=== PATIENT | female | born 1930 | race Caucasian/White ===

== ENCOUNTER → 2016-11-01 | Outpatient (CLI) | payer MEDICARE, OTHER | LOC: WI 11:25 | PROVIDERS: ATTEND Internal Medicine | DX: Z12.31 Encounter for screening mammogram for malignant neoplasm of breast (principal) | CPT/HCPCS: 77067; G0202 ==

== ENCOUNTER → 2016-11-19 | Outpatient (CLI) | payer MEDICARE, OTHER ==
--- NOTE | 2016-11-19 17:31 | RADIOLOGY REPORT (SQ) ---
EXAM DESCRIPTION: VENOUS BILATERAL LOWER COMPLETED DATE/TIME: 11/19/2016 5:12 pm REASON FOR STUDY: BLE SWELLING Z12.31 ENCNTR SCREEN MAMMOGRAM FOR MALIGNANT NEOPLASM OF DAVID COMPARISON: None. TECHNIQUE: Dynamic and static russell scale and color images acquired of both lower extremity venous systems. Selected spectral images acquired with additional compression and augmentation maneuvers. Images stored on PACS. LIMITATIONS: None. FINDINGS: RIGHT LEG COMMON FEMORAL AND FEMORAL: Normal phasicity, compression and augmentation. No visualized echogenic material on russell scale. No defects on color images. POPLITEAL: Normal compression and augmentation. No visualized echogenic material on russell scale. No defects on color images. CALF VESSELS: Normal compression and augmentation. No visualized echogenic material on russell scale. No defects on color image. GSV AND SSV: Normal compression. No visualized echogenic material on russell scale. No defects on color images. ANY DEEP VENOUS INSUFFICIENCY: Not evaluated. ANY EVIDENCE OF POPLITEAL CYST: No. OTHER: No other significant finding. LEFT LEG COMMON FEMORAL AND FEMORAL: Normal phasicity, compression and augmentation. No visualized echogenic material on russell scale. No defects on color images. POPLITEAL: Normal compression and augmentation. No visualized echogenic material on russell scale. No defects on color images. CALF VESSELS: Normal compression and augmentation. No visualized echogenic material on russell scale. No defects on color images. GSV AND SSV: Normal compression. No visualized echogenic material on russell scale. No defects on color images. ANY DEEP VENOUS INSUFFICIENCY: Not evaluated. ANY EVIDENCE POPLITEAL CYST: No. OTHER: No other significant finding. IMPRESSION: NO EVIDENCE DVT OR SVT IN EITHER LEG. TECHNICAL DOCUMENTATION: JOB ID: [id number]- All Rights Reserved <Electronically signed by SANJEEV BAR MD in OV> 11/19/16 1730 [facility]
== END ==
LOC: SP 16:20
PROVIDERS: ATTEND Internal Medicine
DX: R22.43 Localized swelling, mass and lump, lower limb, bilateral (principal)
CPT/HCPCS: 93970

== ENCOUNTER → 2016-12-19 | Outpatient (CLI) | payer MEDICARE, OTHER ==
--- NOTE | 2016-12-19 15:01 | RADIOLOGY REPORT (SQ) ---
EXAM DESCRIPTION: HAND LEFT 3 VIEWS COMPLETED DATE/TIME: 12/19/2016 2:14 pm REASON FOR STUDY: PAIN IN LEFT HAND M79.642 PAIN IN LEFT HAND COMPARISON: None. EXAM PARAMETERS: NUMBER OF VIEWS: Three views. TECHNIQUE: AP, lateral and oblique radiographic images acquired of the left hand. LIMITATIONS: None. FINDINGS: MINERALIZATION: Normal. BONES: No acute fracture or dislocation. No worrisome bone lesions. No significant osteophytes. JOINTS: There are mild degenerative changes in the 1st carpal/metacarpal joint. There are degenerati ve changes in the distal interphalangeal joints. SOFT TISSUES: No swelling. No calcifications. OTHER: No other significant finding. IMPRESSION: Scattered osteoarthritic changes. No acute findings. TECHNICAL DOCUMENTATION: JOB ID: [id number] [employer]- All Rights Reserved
== END ==
LOC: OD 13:53
PROVIDERS: ATTEND Internal Medicine
DX: M79.642 Pain in left hand (principal)

== ENCOUNTER → 2017-05-31 | Outpatient (CLI) | payer MEDICARE, OTHER ==
--- NOTE | 2017-05-31 11:46 | RADIOLOGY REPORT (SQ) ---
EXAM DESCRIPTION: U/S ABDOMEN LIMITED W/O DOP COMPLETED DATE/TIME: 05/31/2017 11:06 am REASON FOR STUDY: EPIGASTRIC PAIN (R10.13) R10.13 EPIGASTRIC PAIN COMPARISON: None. TECHNIQUE: Dynamic and static grayscale images acquired of the right upper quadrant and recorded on PACS. Additional selected color Doppler and spectral images recorded. LIMITATIONS: Study limited due to acoustical interference from fat or from air in the bowel. FINDINGS: PANCREAS: Visualized pancreas and duct normal. Parts of pancreas poorly seen secondary to acoustical interference from fat or from air in the bowel. LIVER: 1.7 cm cyst in the left lobe. No solid masses. Echotexture normal. LIVER VASCULATURE: Normal directional flow of the main portal vein and hepatic veins. GALLBLADDER: Small stones and sludge. Normal wall thickness. No pericholecystic fluid. ULTRASOUND-DETECTED OREILLY'S SIGN: Negative. INTRAHEPATIC DUCTS AND COMMON DUCT: CBD and intrahepatic ducts normal caliber. No filling defects. INFERIOR VENA CAVA: Normal flow. AORTA: No aneurysm. RIGHT KIDNEY: Normal size. Normal echogenicity. No solid or suspicious masses. No hydronephrosis. No calcifications. PERITONEAL CAVITY AND RIGHT PLEURAL SPACE: No ascites or effusions. OTHER: No other significant finding. IMPRESSION: 1. SMALL STONES AND SLUDGE IN THE GALLBLADDER. NO BILIARY DILATION OR ACUTE FINDINGS. 2. 1.7 CM CYST IN THE LEFT LOBE OF THE LIVER. TECHNICAL DOCUMENTATION: JOB ID: [id number] [employer]- All Rights Reserved
== END ==
LOC: RAD 09:58
PROVIDERS: ATTEND Internal Medicine
DX: R10.13 Epigastric pain (principal)
CPT/HCPCS: 76705

== ENCOUNTER 2017-11-01 09:29 | Emergency (ER) | payer MEDICARE, OTHER ==
[2017-11-01] MEDS ORDERED: ASPIRIN 81 MG TABLET, CHEWABLE PO ONE (10:09)
[2017-11-01] MEDS ORDERED: ONDANSETRON HCL INJ/PF 4 MG/2 ML SDV IV ONE (10:19)
[2017-11-01 10:43] LABS: ABSOLUTE EOSINOPHILS # (AUTO) 0.1 10^3/uL (0.0-0.6); ABSOLUTE LYMPHOCYTES (AUTO) 1.3 10^3/uL (0.5-4.7); ABSOLUTE MONOCYTES (AUTO) 1.2 10^3/uL (0.1-1.4); ABSOLUTE NEUT (AUTO) 3.8 10^3/uL (1.7-8.2); BASOPHILS % (AUTO) 0.6 % (0-2); EOSINOPHILS % (AUTO) 1.6 % (0-6); HEMATOCRIT 38.4 % (36.0-47.0); LYMPHOCYTES % (AUTO) 19.9 % (13-45); MEAN CORPUSCULAR HEMOGLOBIN 34.1 pg (27.0-33.4); MEAN CORPUSCULAR VOLUME 101 fl (80-97); MONOCYTES % (AUTO) 18.2 % (3-13); PLATELET COUNT 252 10^3/uL (150-450); RED BLOOD COUNT 3.82 10^6/uL (3.72-5.28); RED CELL DISTRIBUTION WIDTH 12.8 % (11.5-14.0); SEGMENTED NEUTROPHILS % (AUTO) 59.7 % (42-78); TOTAL CELLS COUNTED % (AUTO) 100 %; WHITE BLOOD COUNT 6.3 10^3/uL (4.0-10.5)
--- NOTE | 2017-11-01 10:46 | RADIOLOGY REPORT (SQ) ---
EXAM DESCRIPTION: CHEST SINGLE VIEW COMPLETED DATE/TIME: 11/01/2017 10:33 am REASON FOR STUDY: cp COMPARISON: Chest films 06/21/2015, 04/25/2015, 09/02/2012 EXAM PARAMETERS: NUMBER OF VIEWS: One view. TECHNIQUE: Single frontal radiographic view of the chest acquired. RADIATION DOSE: NA LIMITATIONS: None. FINDINGS: LUNGS AND PLEURA: No opacities, masses or pneumothorax. No pleural effusion. MEDIASTINUM AND HILAR STRUCTURES: No masses. Contour normal. HEART AND VASCULAR STRUCTURES: Heart normal in size. Normal vasculature. Calcified mitral annulus BONES: No acute findings. HARDWARE: Left-sided dual lead pacemaker unchanged. OTHER: No other significant finding. IMPRESSION: No acute findings TECHNICAL DOCUMENTATION: JOB ID: [id number] [employer]- All Rights Reserved Reading location - IP/workstation name: [email or web address]
--- NOTE | 2017-11-01 11:05 | EKG REPORT ---
SEVERITY:- OTHERWISE NORMAL ECG - SINUS RHYTHM BORDERLINE LEFT AXIS DEVIATION : Confirmed by: Kiera Luis 01-Nov-2017 11:04:55
[2017-11-01 11:10] LABS: ALANINE AMINOTRANSFERASE 31 U/L (9-52); ALBUMIN 3.6 g/dL (3.5-5.0); ALKALINE PHOSPHATASE 73 U/L (38-126); ANION GAP 9 (5-19); ASPARTATE AMINO TRANSFERASE 23 U/L (14-36); BILIRUBIN,DIRECT 0.3 mg/dL (0.0-0.4); BILIRUBIN,TOTAL 0.4 mg/dL (0.2-1.3); BLOOD UREA NITROGEN 13 mg/dL (7-20); CALCIUM 8.8 mg/dL (8.4-10.2); CARBON DIOXIDE 28 mmol/L (22-30); CHLORIDE 103 mmol/L (98-107); CREATINE KINASE 53 U/L (30-135); GLUCOSE 94 mg/dL (75-110); LIPASE 48.9 U/L (23-300); POTASSIUM 4.5 mmol/L (3.6-5.0); SODIUM 140.2 mmol/L (137-145); TOTAL PROTEIN 5.8 g/dL (6.3-8.2)
[2017-11-01 11:20] LABS: CREATINE KINASE MB 1.41 ng/mL (<4.55)
[2017-11-01 11:22] LABS: TROPONIN I < 0.012 ng/mL
[2017-11-01 12:15] LABS: APPEARANCE,URINE CLEAR; BILIRUBIN,URINE NEGATIVE (NEGATIVE); COLOR,URINE STRAW; GLUCOSE, URINE NEGATIVE (NEGATIVE); KETONES,URINE NEGATIVE (NEGATIVE); LEUKOCYTE ESTERASE,URINE NEGATIVE (NEGATIVE); NITRITE,URINE NEGATIVE (NEGATIVE); PROTEIN,URINE NEGATIVE (NEGATIVE); URINE SPECIFIC GRAVITY 1.003; UROBILINOGEN,URINE NEGATIVE mg/dL (<2.0)
--- NOTE | 2017-11-01 13:47 | RADIOLOGY REPORT (SQ) ---
EXAM DESCRIPTION: CT ABD/PELVIS WITH IV ORAL COMPLETED DATE/TIME: 11/01/2017 1:28 pm REASON FOR STUDY: llq pain, diarrhea, hx diverticulitis COMPARISON: Abdominal ultrasound 05/31/2017 CT abdomen pelvis 06/07/2012 TECHNIQUE: CT scan of the abdomen and pelvis performed using helical scanning technique with dynamic intravenous contrast injection. The patient drank oral contrast. Images reviewed with lung, soft tissue, and bone windows. Reconstruc aakash coronal and sagittal MPR images reviewed. Delayed images for evaluation of the urinary system als o acquired. All images stored on PACS. All CT scanners at this facility use dose modulation, iterative reconstruction, and/or weight based d osing when appropriate to reduce radiation dose to as low as reasonably achievable (ALARA). [facility]: Dose Right [facility]: CareDose [facility]: Dose Right [facility]: Teradose 4D [facility]: PayPerks CONTRAST TYPE AND DOSE: contrast/concentration: Isovue 370.00 mg/ml; Total Contrast Delivered: 75.0 ml; Total Saline Delivered: 60.0 ml RENAL FUNCTION: Creatinine 0.6 RADIATION DOSE: CT Rad equipment meets quality standard of care and radiation dose reduction techniq ues were employed. CTDIvol: 6.3 - 8.7 mGy. DLP: 771 mGy-cm.. LIMITATIONS: None. FINDINGS: Patient drank oral contrast. No CT evidence of bowel obstruction. No free intraperitonea l air or fluid. There are descending colon and sigmoid colon diverticuli without CT signs of acute diverticulitis. N o pericolic fat inflammatory change or abscess. In the left pelvis along the left ovary, an 8.5 x 6.5 cm cyst is present, best shown on coronal image 31. This is larger than in 2012, where it measured 3 x 3 cm in size. Cystic ovarian neoplasm could not be excluded. LOWER CHEST: Lung bases are clear. Small hiatal hernia. Mild cardiomegaly with pacemaker and calcif ied mitral annulus LIVER: Normal size. No masses. Multiple benign less than 2 cm hepatic cysts in the left lobe liver. No dilated ducts. SPLEEN: Normal size. No focal lesions. PANCREAS: No masses. No significant calcifications. No adjacent inflammation or peripancreatic fluid collections. Pancreatic duct not dilated. GALLBLADDER: Tiny stones layer dependently in the gallbladder. ADRENAL GLANDS: No significant masses or asymmetry. RIGHT KIDNEY AND URETER: No solid masses. No significant calcifications. No hydronephrosis or hyd roureter. LEFT KIDNEY AND URETER: No solid masses. No significant calcifications. No hydronephrosis or hydr oureter. AORTA AND VESSELS: No abdominal aortic aneurysm. Calcified visceral artery origins with about 50% pr oximal SMA stenosis. Celiac artery, bilateral renal artery is grossly patent. RETROPERITONEUM: No retroperitoneal adenopathy, hemorrhage or masses. BOWEL AND PERITONEAL CAVITY: Oral contrast throughout the gastrointestinal tract without evidence of obstruction. No free intraperitoneal air or fluid. Descending and sigmoid colon diverticuli without CT signs of diverticulitis APPENDIX: Normal. PELVIS: No free fluid. No pelvic adenopathy. Normal size uterus with small postmenopausal right ova ry. On the left side, an 8.5 x 6.5 cm cyst is present. Cystic ovarian neoplasm could not be exclude d ABDOMINAL WALL: No masses. No hernias. BONES: Grade 1 anterolisthesis of L4 over L5 with mild central canal stenosis OTHER: No other significant finding. IMPRESSION: No CT evidence of acute diverticulitis 8.5 x 6.5 cm water density cyst along the left ovary. Cystic ovarian neoplasm could not entirely be excluded TECHNICAL DOCUMENTATION: JOB ID: [id number] Quality ID # [id number]: Final reports with documentation of one or more dose reduction techniques (e.g., Au tomated exposure control, adjustment of the mA and/or kV according to patient size, use of iterative reconstruction technique) 2010 [employer]- All Rights Reserved Reading location - IP/workstation name: [email or web address]
--- NOTE | 2017-11-01 15:32 | RADIOLOGY REPORT (SQ) ---
EXAM DESCRIPTION: U/S NON OB PEL LTD W/DOPPLER COMPLETED DATE/TIME: 11/01/2017 3:13 pm REASON FOR STUDY: left ovarian cyst, large, pain, n/v/d COMPARISON: CT abdomen pelvis 11/01/2017, 06/07/2012 TECHNIQUE: Dynamic and static grayscale images acquired of the pelvis via transabdominal approach an d recorded on PACS. Additional selected color Doppler and spectral images recorded. LIMITATIONS: None. FINDINGS: UTERUS: Contour normal. No mass. Uterus is 6 x 3 x 2 cm in size ENDOMETRIAL STRIPE: Not visualized. CERVIX: Closed, 3 cm in length. RIGHT OVARY AND DOPPLER: Not visualized LEFT OVARY AND DOPPLER: Left ovary not well seen. There is a left adnexal cyst 8.5 x 6.5 cm in size, unchanged from CT exam earlier today. No septations or nodularity of the wall at ultrasound. We we re unable to obtain reliable Doppler signal around the periphery of the cyst. Left ovarian torsion c ould not be excluded. Findings discussed with Yanelis Ulloa in the emergency room. FREE FLUID: None noted. OTHER: No other significant finding. IMPRESSION: Left adnexal simple cyst is likely ovarian in origin. We were unable to obtain reliable Doppler blood flow signal around the periphery of the cyst. Results discussed with the patient's ca regiver in emergency room TECHNICAL DOCUMENTATION: JOB ID: [id number] [employer]- All Rights Reserved Rev Reading location - IP/workstation name: [email or web address]
--- NOTE | 2017-11-01 16:14 | ER Document Report ---
ED General - General Chief Complaint: Chest Pain Stated Complaint: CHEST PAIN Time Seen by Provider: 11/01/17 10:07 Mode of Arrival: Ambulatory Information source: Patient Notes: Patient is an 87-year-old female who presents to the ER today for 1 day of nausea, vomiting, watery diarrhea. Patient states that she just came back from traveling from [place] and ate hamburger and some fried livers that she thinks may have made her ill. Patient admits to some left lower quadrant abdominal pain since her symptoms began. Patient does state that she felt the same nausea and vomiting whenever she had her heart attack years ago. She is denying any chest pain. She denies any shortness of breath. Patient denies any history of Crohn's, ulcerative colitis, irritable bowel syndrome. She does have a history of diverticulitis. Patient states that she is due for colonoscopy. She denies any blood in her diarrhea or vomit. She denies any fevers or chills, she still has all of her abdominal organs. Patient denies any fevers or chills. TRAVEL OUTSIDE OF THE [place] IN LAST 30 DAYS: No COUNTRY TRAVELED TO/FROM: [facility] - Related Data Allergies/Adverse Reactions: Penicillins Allergy (Mild, Verified 04/12/16 14:36) rash Sulfa (Sulfonamide Antibiotics) Allergy (Mild, Verified 04/12/16 14:36) Hives Past Medical History - General Information source: Patient - Social History Smoking Status: Never Smoker Chew tobacco use (# tins/day): No Frequency of alcohol use: Occasional Drug Abuse: None Family History: Reviewed & Not Pertinent Patient has suicidal ideation: No Patient has homicidal ideation: No - Past Medical History Cardiac Medical History: Reports: Hx Coronary Artery Disease, Hx Heart Attack - 2005 pacemaker, Hx Hypercholesterolemia, Hx Hypertension Pulmonary Medical History: Reports: Hx Asthma - LAST USED 2 MONTHS AGO, Hx Bronchitis, Hx COPD, Hx Pneumonia, Hx Sleep Apnea Denies: Hx Tuberculosis Neurological Medical History: Reports: Hx Cerebrovascular Accident - APR 2015, NO PROBLEMS NOW,SPEECH/EATING RETRAIN. Denies: Hx Seizures Renal/ Medical History: Denies: Hx Peritoneal Dialysis GI Medical History: Reports: Hx Gastroesophageal Reflux Disease. Denies: Hx Hepatitis, Hx Hiatal Hernia, Hx Ulcer Musculoskeltal Medical History: Reports Hx Arthritis Psychiatric Medical History: Denies: Hx Depression Infectious Medical History: Denies: Hx Hepatitis Past Surgical History: Reports: Hx Cardiac Catheterization, Hx Cardiac Surgery - stent, Hx Coronary Stent, Hx Pacemaker, Hx Tonsillectomy. Denies: Hx Hysterectomy, Hx Mastectomy, Hx Open Heart Surgery - Immunizations Immunizations up to date: Yes Hx Diphtheria, Pertussis, Tetanus Vaccination: Yes Hx Pneumococcal Vaccination: 06/17/08 Review of Systems - Review of Systems Constitutional: No symptoms reported EENT: No symptoms reported Cardiovascular: No symptoms reported Respiratory: No symptoms reported Gastrointestinal: See HPI Genitourinary: No symptoms reported Female Genitourinary: No symptoms reported Musculoskeletal: No symptoms reported Skin: No symptoms reported Hematologic/Lymphatic: No symptoms reported Neurological/Psychological: No symptoms reported Physical Exam - Vital signs Vitals: Temp Pulse Resp BP Pulse Ox 98.5 F 61 16 128/61 H 98 11/01/17 09:43 11/01/17 09:43 11/01/17 09:43 11/01/17 09:43 11/01/17 09:43 - Notes Notes: PHYSICAL EXAMINATION: GENERAL: Well-appearing, smiling, and in no acute distress. HEAD: Atraumatic, normocephalic. EYES: Pupils equal round and reactive to light, extraocular movements intact, sclera anicteric, conjunctiva are normal. ENT: ear canals without erythema or foreign body, TMs pearly matthews with good bony landmarks, nares patent, oropharynx clear without exudates. Moist mucous membranes. Airway patent NECK: Normal range of motion, supple without lymphadenopathy LUNGS: CTAB and equal. No wheezes rales or rhonchi. HEART: Regular rate and rhythm without murmurs ABDOMEN: Soft, left lower quadrant tenderness. No guarding, no rebound BACK: no vertebral tenderness, normal ROM Rectal: internal hemorrhoid noted, no bleeding GI/: no CVA tenderness EXTREMITIES: Normal range of motion, no pitting edema. No cyanosis. NEUROLOGICAL: Cranial nerves grossly intact. Normal sensory/motor exams. PSYCH: Normal mood, normal affect. SKIN: Warm, Dry, normal turgor, no rashes or lesions noted Course - Re-evaluation Re-evalutation: 11/01/17 16:45 Lab work is unremarkable today including a normal white blood cell count, 2 sets of troponins are negative today. Patient states that she has had some bright red blood while going to the bathroom here in the emergency department and a large blood clot when she had a stool here in the emergency department only. Patient has not had this prior to the ER visit. I did check her rectum after 1 of the supposed to bleeding episodes, there was a small streak of bright red blood with an internal hemorrhoid noted but otherwise no bleeding, patient did not have this again. CT of the abdomen and pelvis with IV and oral contrast reports no diverticulitis or other acute pathology but does report an 8.5 x 6.5 cm ovarian cyst that does not appear malignant. Ultrasound of this reports the same, does not appear to be malignant. I did speak with Dr. Blanco OBGYN states that he will follow-up with her in the office and refer her to OB/ [employer] oncology as it is not normal for an 87-year-old to have a cyst even though it does not appear malignant today according to the radiologist. I will provide patient with some pain medication and nausea medication. 11/01/17 18:40 - Vital Signs Vital signs: Temp Pulse Resp BP Pulse Ox 97.3 F 63 17 129/62 H 98 11/01/17 16:23 11/01/17 16:23 11/01/17 16:23 11/01/17 16:23 11/01/17 16:23 - Laboratory Result Diagrams: 11/01/17 10:22 11/01/17 10:22 Laboratory results interpreted by me: 11/01/17 11/01/17 10:22 10:22 MCV 101 H MCH 34.1 H Monocytes % 18.2 H Total Protein 5.8 L Discharge - Discharge Clinical Impression: Left ovarian cyst, Nausea vomiting and diarrhea, Bleeding hemorrhoid Condition: Stable Disposition: HOME, SELF-CARE Additional Instructions: Return immediately for any new or worsening symptoms. Follow up with obgyn, call tomorrow to make followup appointment. Prescriptions: Hydrocodone/Acetaminophen [Cordova 5-325 mg Tablet] 1 tab PO Q4 PRN #12 tablet PRN Reason: Hydrocortisone Acetate 25 mg RC BID #14 supp.rect Ondansetron [Zofran Odt 4 mg Tablet] 1 - 2 tab PO Q4H PRN #15 tab.rapdis PRN Reason: For Nausea/Vomiting Referrals: KASEY SANDOVAL MD [Primary Care Provider] - Follow up as needed SHERRI BLANCO MD [ACTIVE STAFF] - Follow up as needed
[2017-11-01 16:25] VITALS: BP 129/62
[2017-11-01] MEDS ORDERED: HYDROCORTISONE ACETATE 25 MG SUPP.RECT PR ONE (17:16)
== END 2017-11-01 16:33 | disposition home or self-care (01) ==
LOC: ER 09:29
DX: N83.202 Unspecified ovarian cyst, left side (principal); K64.8 Other hemorrhoids; R07.9 Chest pain, unspecified; R11.2 Nausea with vomiting, unspecified; R19.7 Diarrhea, unspecified; Z88.0 Allergy status to penicillin; Z88.2 Allergy status to sulfonamides; Z95.0 Presence of cardiac pacemaker
CPT/HCPCS: 93005; 99285; 96374; 36415; 82553; 82550; 83690; 85025; 80053; 81001; 84484; 71045; 76857; 93976; 74177; 93010; J3490; A9270; J2405

== ENCOUNTER → 2017-11-04 | Outpatient (CLI) | payer MEDICARE, OTHER ==
--- NOTE | 2017-11-05 12:31 | WOMENS IMAGING REPORT ---
EXAM DESCRIPTION: 3D SCREENING MAMMO BILAT COMPLETED DATE/TIME: 11/04/2017 9:29 am REASON FOR STUDY: SCREENING MAMMO Z12.31 ENCNTR SCREEN MAMMOGRAM FOR MALIGNANT NEOPLASM OF DAVID COMPARISON: Multiple since 2011 TECHNIQUE: Standard craniocaudal and mediolateral oblique views of each breast recorded using digita l acquisition and breast tomosynthesis. LIMITATIONS: None. FINDINGS: RIGHT BREAST MASSES: No suspicious masses. CALCIFICATIONS: No new or suspicious calcifications. ARCHITECTURAL DISTORTION: None. DEVELOPING DENSITY: Right breast MLO view only, 7 to 8 cm from the nipple upper half there is a devel oping density which requires further evaluation with right breast 90 mediolateral view, cone kervin renard magnification right MLO view, exaggerated craniocaudad view. If this finding persists, then ult rasound would be required for followup ASYMMETRY: None noted. OTHER: No other significant findings. LEFT BREAST MASSES: No suspicious masses. CALCIFICATIONS: No new or suspicious calcifications. ARCHITECTURAL DISTORTION: None. DEVELOPING DENSITY: None. ASYMMETRY: None noted. OTHER: No other significant findings. Read with the assistance of CAD. .[facility] - R2 Cenova Version 1.3 .[facility] - R2 Cenova Version 1.3 .[facility] - R2 Cenova Version 2.4 .[facility] - R2 Cenova Version 2.4 .[facility] - R2 [employer] Worker Version 9.2 IMPRESSION: Developing density right breast MLO view only for which additional diagnostic mammograms and ultrasound recommended. No mammographic/ tomosynthesis evidence for malignancy left breast. BREAST DENSITY: b. There are scattered areas of fibroglandular density. BIRAD: 0 Incomplete: Needs Additional Imaging Evaluation and/or prior Mammograms for Comparison. RECOMMENDATION: RECOMMENDED FOLLOW-UP: Additional right breast diagnostic mammograms and ultrasound The patient will be contacted for additional imaging. COMMENT: The patient has been notified of the results by letter per [place] requirements. Additional no tification policies are in place for contacting patient with suspicious or incomplete findings. Quality ID #[id number]: The [employer] recommends an annual screening mammogram for women aged 40 years or over. This facility utilizes a reminder system to ensure that all patients receive reminder letters, and/or direct phone calls for appointments. This includes reminders for routine scr eening mammograms, diagnostic mammograms, or other Breast Imaging Interventions when appropriate. Th is patient will be placed in the appropriate reminder system. The [employer] (ACR) has developed recommendations for screening MRI of the breast s in certain patient populations, to be used in conjunction with mammography. Breast MRI surveillanc e may be appropriate for women with more than 20% lifetime risk of developing breast cancer as deter mined by genetic testing, significant family history of the disease, or history of mantle radiation f or Hodgkins Disease. ACR Practice Guidelines 2008. DBT Technology DBT is a type of tomographic mammography. With conventional mammography, overlapping breast tissue ma y make lesions difficult to detect, even with good compression. DBT uses an x-ray tube that rotates a round the breast, taking images at different angles. These images are then combined to create thin sl ices of the breast that the radiologist can view as a 3D reconstruction. The [employer] unit can perform full-field digital mammograms (2D imaging); or DBT (3D imaging); or both, in a combination mode that quickly performs both the mammogram and the tomosynthesis scan while the breast is still compressed. PQRS 6045F: Fluoroscopic imaging is not utilized for breast tomosynthesis. TECHNICAL DOCUMENTATION: FINDING NUMBER: (1) ASSESSMENT: (1) JOB ID: [id number] [employer]- All Rights Reserved Reading location - IP/workstation name: [email or web address]
== END ==
LOC: WI 09:11
PROVIDERS: ATTEND Internal Medicine
DX: Z12.31 Encounter for screening mammogram for malignant neoplasm of breast (principal)
CPT/HCPCS: 77063; 77067

== ENCOUNTER → 2017-11-05 | Outpatient (CLI) | payer MEDICARE, OTHER ==
[2017-11-05 09:24] LABS: ALANINE AMINOTRANSFERASE 34 U/L (9-52); ALBUMIN 3.7 g/dL (3.5-5.0); ALKALINE PHOSPHATASE 76 U/L (38-126); ANION GAP 13 (5-19); ASPARTATE AMINO TRANSFERASE 25 U/L (14-36); BILIRUBIN,DIRECT 0.2 mg/dL (0.0-0.4); BILIRUBIN,TOTAL 0.2 mg/dL (0.2-1.3); BLOOD UREA NITROGEN 14 mg/dL (7-20); CALCIUM 9.4 mg/dL (8.4-10.2); CARBON DIOXIDE 29 mmol/L (22-30); CHLORIDE 101 mmol/L (98-107); CHOLESTEROL 135.19 mg/dL (0-200); GLUCOSE 97 mg/dL (75-110); POTASSIUM 4.9 mmol/L (3.6-5.0); SODIUM 142.5 mmol/L (137-145); TOTAL PROTEIN 5.7 g/dL (6.3-8.2); TRIGLYCERIDES 100 mg/dL (<150)
[2017-11-05 09:35] LABS: DIRECT LDL 64 mg/dL (<100)
== END ==
LOC: OD 08:04
PROVIDERS: ATTEND Internal Medicine
DX: I25.10 Atherosclerotic heart disease of native coronary artery without angina pectoris (principal); E78.4 Other hyperlipidemia; I10 Essential (primary) hypertension; Z98.61 Coronary angioplasty status; I34.0 Nonrheumatic mitral (valve) insufficiency; R06.00 Dyspnea, unspecified; I34.8 Other nonrheumatic mitral valve disorders; I36.1 Nonrheumatic tricuspid (valve) insufficiency; Z79.899 Other long term (current) drug therapy
CPT/HCPCS: 36415; 80053; 80061

== ENCOUNTER → 2017-11-14 | Outpatient (CLI) | payer MEDICARE, OTHER ==
--- NOTE | 2017-11-15 07:36 | WOMENS IMAGING REPORT ---
EXAM DESCRIPTION: RIGHT DIAGNOSTIC MAMMO W/CAD; U/S BREAST UNILAT LIMITED COMPLETED DATE/TIME: 11/14/2017 11:05 am; 11/14/2017 1:08 pm REASON FOR STUDY: INCONCLUSIVE; R92.2; RT BREAST DENSITY R92.2 R92.2 INCONCLUSIVE MAMMOGRAM COMPARISON: Multiple since 2011 TECHNIQUE: Exaggerated craniocaudal and mediolateral oblique cone compression images of the breast r ecorded with digital acquisition. Right breast ultrasound was also performed. LIMITATIONS: None. FINDINGS: BREAST: Right MASSES: Laterally in the right breast, about 8 to 10 cm from the nipple a 10 mm spiculated nodule is present at about the 10 o'clock position mammographically. This has architectural distortion, and is suspicious for malignancy. CALCIFICATIONS: No new or suspicious calcifications. ARCHITECTURAL DISTORTION: None. DEVELOPING DENSITY: None. ASYMMETRY: None noted. OTHER: No other significant findings. Read with the assistance of CAD. .[facility] - R2 Cenova Version 1.3 .[facility] - R2 Cenova Version 1.3 .[facility] - R2 Cenova Version 2.4 .[facility] - R2 Cenova Version 2.4 .[facility] - R2 Pocket Creaser Version 9.2 Right breast ultrasound: Right breast ultrasound was performed by both myself as well as the technologist. The 10 mm spiculat ed mammographic nodule seen on today's diagnostic cone compression mammograms is not definitely ident ified at ultrasound. IMPRESSION: Spiculated mammographic nodule worrisome for malignancy in the right breast upper outer quadrant 10 o'clock position. Stereotactic biopsy with post biopsy clip placement and follow-up post procedure two-view mammogram recommended. BREAST DENSITY: b. There are scattered areas of fibroglandular density. BIRAD: 4 Suspicious. Biopsy should be considered. RECOMMENDATION: RECOMMENDED FOLLOW UP: Right breast stereotactic biopsy of the spiculated mammograph ic nodule worrisome for malignancy in the right breast 10 o'clock position. SPECIFIC INTERVENTION/IMAGING/CONSULTATION RECOMMENDED:Right breast stereotactic biopsy of the spicul ated mammographic nodule worrisome for malignancy in the right breast 10 o'clock position. COMMUNICATION:These findings were discussed with the patient at the time of service. She is amenable to stereotactic biopsy being performed. COMMENT: The patient has been notified of the results by letter per MQSA requirements. Additional no tification policies are in place for contacting patient with suspicious or incomplete findings. Quality ID #225: The [employer] recommends an annual screening mammogram for women aged 40 years or over. This facility utilizes a reminder system to ensure that all patients receive reminder letters, and/or direct phone calls for appointments. This includes reminders for routine scr eening mammograms, diagnostic mammograms, or other Breast Imaging Interventions when appropriate. Th is patient will be placed in the appropriate reminder system. The [employer] (ACR) has developed recommendations for screening MRI of the breast s in certain patient populations, to be used in conjunction with mammography. Breast MRI surveillanc e may be appropriate for women with more than 20% lifetime risk of developing breast cancer as deter mined by genetic testing, significant family history of the disease, or history of mantle radiation f or Hodgkins Disease. ACR Practice Guidelines 2008. TECHNICAL DOCUMENTATION: FINDING NUMBER: (1) ASSESSMENT: (1) JOB ID: [id number] [employer]- All Rights Reserved Reading location - IP/workstation name: [email or web address]
--- NOTE | 2017-11-15 07:36 | WOMENS IMAGING REPORT ---
EXAM DESCRIPTION: RIGHT DIAGNOSTIC MAMMO W/CAD; U/S BREAST UNILAT LIMITED COMPLETED DATE/TIME: 11/14/2017 11:05 am; 11/14/2017 1:08 pm REASON FOR STUDY: INCONCLUSIVE; R92.2; RT BREAST DENSITY R92.2 R92.2 INCONCLUSIVE MAMMOGRAM COMPARISON: Multiple since 2011 TECHNIQUE: Exaggerated craniocaudal and mediolateral oblique cone compression images of the breast r ecorded with digital acquisition. Right breast ultrasound was also performed. LIMITATIONS: None. FINDINGS: BREAST: Right MASSES: Laterally in the right breast, about 8 to 10 cm from the nipple a 10 mm spiculated nodule is present at about the 10 o'clock position mammographically. This has architectural distortion, and is suspicious for malignancy. CALCIFICATIONS: No new or suspicious calcifications. ARCHITECTURAL DISTORTION: None. DEVELOPING DENSITY: None. ASYMMETRY: None noted. OTHER: No other significant findings. Read with the assistance of CAD. .[facility] - R2 Cenova Version 1.3 .[facility] - R2 Cenova Version 1.3 .[facility] - R2 Cenova Version 2.4 .[facility] [place] R2 Cenova Version 2.4 .[facility] - R2 Bicycle Courier Version 9.2 Right breast ultrasound: Right breast ultrasound was performed by both myself as well as the technologist. The 10 mm spiculat ed mammographic nodule seen on today's diagnostic cone compression mammograms is not definitely ident ified at ultrasound. IMPRESSION: Spiculated mammographic nodule worrisome for malignancy in the right breast upper outer quadrant 10 o'clock position. Stereotactic biopsy with post biopsy clip placement and follow-up post procedure two-view mammogram recommended. BREAST DENSITY: b. There are scattered areas of fibroglandular density. BIRAD: 4 Suspicious. Biopsy should be considered. RECOMMENDATION: RECOMMENDED FOLLOW UP: Right breast stereotactic biopsy of the spiculated mammograph ic nodule worrisome for malignancy in the right breast 10 o'clock position. SPECIFIC INTERVENTION/IMAGING/CONSULTATION RECOMMENDED:Right breast stereotactic biopsy of the spicul ated mammographic nodule worrisome for malignancy in the right breast 10 o'clock position. COMMUNICATION:These findings were discussed with the patient at the time of service. She is amenable to stereotactic biopsy being performed. COMMENT: The patient has been notified of the results by letter per MQSA requirements. Additional no tification policies are in place for contacting patient with suspicious or incomplete findings. Quality ID #225: [employer] recommends an annual screening mammogram for women aged 40 years or over. This facility utilizes a reminder system to ensure that all patients receive reminder letters, and/or direct phone calls for appointments. This includes reminders for routine scr eening mammograms, diagnostic mammograms, or other Breast Imaging Interventions when appropriate. Th is patient will be placed in the appropriate reminder system. The [employer] (ACR) has developed recommendations for screening MRI of the breast s in certain patient populations, to be used in conjunction with mammography. Breast MRI surveillanc e may be appropriate for women with more than 20% lifetime risk of developing breast cancer as deter mined by genetic testing, significant family history of the disease, or history of mantle radiation f or Hodgkins Disease. ACR Practice Guidelines 2008. TECHNICAL DOCUMENTATION: FINDING NUMBER: (1) ASSESSMENT: (1) JOB ID: [id number] [employer]- All Rights Reserved Reading location - IP/workstation name: [email or web address]
== END ==
LOC: WI 10:31
PROVIDERS: ATTEND Internal Medicine
DX: N63.11 Unspecified lump in the right breast, upper outer quadrant (principal)
CPT/HCPCS: 76642

== ENCOUNTER → 2017-11-27 | Day surgery (SDC) | payer MEDICARE, OTHER ==
[~2017-11-27] MED LIST: LIDOCAINE 1%/EPINEPHRINE INJ 20 ML VIAL ONE
--- NOTE | 2017-11-28 20:15 | RADIOLOGY REPORT (SQ) ---
EXAM DESCRIPTION: STEREO BREAST BX; RIGHT DIG DX MAMMO NO CHG COMPLETED DATE/TIME: 11/27/2017 11:05 am REASON FOR STUDY: MAMMOGRAPHIC MICROCALCIFICATION FOUND ON DX IMAGING OF BRST; POST BIOPSY RT R92.0 MAMMOGRAPHIC MICROCALCIFICATION FOUND ON DX IMAGING OF COMPARISON: None. TECHNIQUE: Vacuum-assisted stereotactic-guided biopsy of the lesion in the right upper outer quadran t breast. Serial progress stereotactic and single digital images acquired. PROCEDURE: The procedure was discussed with the patient, including possible complications such as bleeding, infection, nondiagnostic sample or possible findings such as atypical ductal hyperplasia wh ich would require additional surgery. Possible clip placement was explained. The patient agreed t o the procedure. The patient was placed prone on the stereotactic table. The lesion in the breast was localized ster eotactically. The skin of the breast was prepped in sterile fashion. Superficial and deep local an esthesia was provided. A small incision was made in the skin and the biopsy probe was advanced to t he target. Using the vacuum-assisted core biopsy device, multiple core specimens were obtained. Continuous low dose infusion of local anesthesia was used during the procedure. A specimen radiograph was obtained. The radiograph demonstrated a portion of the worrisome nodule in the biopsy tissue. Using [id number] technique a pellet clip was deployed at the biopsy site. Mammographic image confirmed presence of the clip. The probe was then removed and hemostasis obtained with manua l compression. A compression bandage was applied. Postoperative instructions were explained to th e patient. POST-PROCEDURE TWO VIEW DIGITAL MAMMOGRAM: An additional two view mammogram was recorded in the [facility] mammographic suite. Marker clip is present at the biopsy site. LIMITATIONS: None. FINDINGS: PATHOLOGY: Invasive ductal carcinoma CONCORDANT: Yes. POST PROCEDURE MAMMOGRAMS FOR MARKER PLACEMENT: Yes IMPRESSION: SUCCESSFUL STEREOTACTIC-GUIDED BIOPSY OF THE LESION IN THE RIGHT BREAST. BIOPSY RESULT S ARE CONCORDANT WITH IMAGING FINDINGS. 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 NOTIFICATION: THESE RESULTS WERE DISCUSSED WITH THE PATIENT. SHE UNDERSTANDS THIS IS A MALIGNANT DAVID GNOSIS WHICH REQUIRES FURTHER THERAPY. RESULTS WERE ALSO DISCUSSED WITH DR. SANDOVAL, 11/28/2017, AT 1400 HOURS BI-RADS 6 Known biopsy-proven malignancy. Appropriate action should be taken. COMMENT: Patient medication list reviewed: Yes- Quality ID# [id number]:Eligible professional attests to doc umenting in the medical record they obtained, updated, or reviewed the patient's current medications. TECHNICAL DOCUMENTATION: JOB ID: [id number] [employer]- All Rights Reserved Reading location - IP/workstation name: [email or web address]
== END ==
LOC: RAD 08:38
PROVIDERS: ATTEND Internal Medicine
DX: C50.911 Malignant neoplasm of unspecified site of right female breast (principal); Z17.0 Estrogen receptor positive status [ER+]
CPT/HCPCS: 88305 ×2; 19081; J3490

== ENCOUNTER → 2017-12-08 | Outpatient (CLI) | payer MEDICARE, OTHER ==
--- NOTE | 2017-12-09 11:26 | RADIOLOGY REPORT (SQ) ---
EXAM DESCRIPTION: PET CT SKULL/THIGH COMPLETED DATE/TIME: 12/08/2017 8:44 pm REASON FOR STUDY: BREAST CANCER C50.919 MALIGNANT NEOPLASM OF UNSP SITE OF UNSPECIFIED FEMAL COMPARISON: CT abdomen and pelvis and ultrasound pelvis dated 11/01/2017. RADIONUCLIDE AND DOSE: 10.0 mCi F18 FDG The route of agent administration: Intravenous FASTING BLOOD SUGAR: 92 mg/dl CONTRAST TYPE AND DOSE: No CT contrast given. TECHNIQUE: Blood glucose level was verified. Above dose of FDG was injected intravenously. 2-D seg mented attenuation correction images were obtained from the base of the skull to the midthighs. Nonc ontrast CT images were obtained for attenuation correction and fusion with emission images. CT image s were performed without oral or intravenous contrast and are not sensitive for parenchymal lesions. A series of overlapping emission PET images were obtained. Images reviewed and manipulated at [facility] work station by the radiologist. Images stored on PACS. LIMITATIONS: None. FINDINGS: HEAD AND NECK: No areas of abnormal metabolic activity in the soft tissues of the head and neck. CHEST: No areas of abnormal metabolic activity in the chest. ABDOMEN AND PELVIS: No areas of abnormal metabolic activity in the abdomen or pelvis. Expected physi ologic activity is present in the genitourinary system and bowel. PROXIMAL LOWER EXTREMITIES: No areas of abnormal metabolic activity in the soft tissues of the lower extremities. BONES: No abnormal metabolic activity in the visualized skeleton. ADDITIONAL CT FINDINGS: Pacemaker. Coronary artery calcifications. Small hiatal hernia. Gallstones . Colonic diverticulosis. Large cyst in the left pelvis. OTHER: Background liver activity mean SUV 2.32. Background blood pool activity mean SUV 2.23. IMPRESSION: 1. UNREMARKABLE PET SCAN. NO AREAS OF ABNORMAL ACTIVITY. 2. LARGE CYST IN THE LEFT SIDE OF THE PELVIS. THIS WAS PREVIOUSLY EVALUATED AND PRESUMABLY IS AN OVA JAMES CYST. NO CHANGE. NO ASSOCIATED SOFT TISSUE MASS OR ABNORMAL ACTIVITY. 3. OTHER INCIDENTAL CT FINDINGS ABOVE. TECHNICAL DOCUMENTATION: JOB ID: [id number]- All Rights Reserved Reading location - IP/workstation name: [email or web address]
== END ==
LOC: RAD 17:56
PROVIDERS: ATTEND Internal Medicine Medical Oncology
DX: C50.811 Malignant neoplasm of overlapping sites of right female breast (principal)
CPT/HCPCS: 78815; A9552

== ENCOUNTER → 2018-01-13 | Outpatient (CLI) | payer MEDICARE, OTHER ==
--- NOTE | 2018-01-13 14:16 | XCELERA REPORT ---
[address] [address] Transthoracic Echocardiogram Report Name: BEBA SALAZAR Age: 87 yrs Gender: Female : 1930 Patient Status: Preadmit Patient Location: [facility] Study Date: 01/13/2018 11:04 AM Procedure: A two-dimensional transthoracic echocardiogram with color flow Doppler was performed. Study Quality: Technically suboptimal. The study was technically difficult with many images being suboptimal in quality. Reason For Study: MITRAL REGURGITATION History: MITRAL REGURGITATION. Ordering Physician: TRINH VARGAS Performed By: Kiki Cooper Interpretation Summary The left ventricle is normal in size. There is mild concentric left ventricular hypertrophy. Left ventricular systolic function is normal. LV EF is > THAN 60% Doppler measurements suggest impaired left ventricular relaxation, which is associated with grade I/IV or mild diastolic dysfunction The left ventricular wall motion is normal. There is no thrombus. The left atrial size is normal. There is no evidence of mitral valve prolapse. There is no mitral valve stenosis. There is a mild amount of mitral regurgitation There is no aortic valvular vegetation. There is no aortic valve stenosis There is no LVOT obstruction. No aortic regurgitation is present. There is no tricuspid stenosis. There is a trace amount of tricuspid regurgitation There is mild pulmonary hypertension by echo RVSP is 35 mm OF hG , with RA MEAN OF 10. There is no pericardial effusion. MMode/2D Measurements & Calculations RVDd: 2.7 cm LVIDd: 4.0 cm FS: 31.4 % Ao root diam: 3.0 cm IVSd: 1.2 cm LVIDs: 2.7 cm EDV(Teich): 69.2 ml Ao root area: 7.0 cm2 LVPWd: 1.2 cm ESV(Teich): 27.8 ml EF(Teich): 59.8 % LVOT diam: 1.5 cm LVOT area: 1.9 cm2 Doppler Measurements & Calculations MV E max alexey: MV dec slope: Ao V2 max: LV V1 max P.3 cm/sec 143.5 cm/sec 4.8 mmHg MV A max alexey: 212.7 cm/sec2 Ao max PG: LV V1 max: 138.7 cm/sec MV dec time: 8.2 mmHg 109.8 cm/sec MV E/A: 0.54 0.35 sec DILIA(V,D): 1.4 cm2 PA V2 max: PI end-d alexey: TR max alexey: 99.9 cm/sec 60.1 cm/sec 249.8 cm/sec PA max P.0 mmHg TR max P.0 mmHg Left Ventricle The left ventricle is normal in size. There is mild concentric left ventricular hypertrophy. Left ventricular systolic function is normal. LV EF is > THAN 60%. Doppler measurements suggest impaired left ventricular relaxation, which is associated with grade I/IV or mild diastolic dysfunction. The left ventricular wall motion is normal. There is no thrombus. There is no ventricular septal defect visualized. Right Ventricle The right ventricle is grossly normal size. Atria The right atrium is normal. The left atrial size is normal. The interatrial septum is intact with no evidence for an atrial septal defect. Mitral Valve There is mild to moderate mitral annular calcification. There is no evidence of mitral valve prolapse. There is no vegetation seen on the mitral valve. There is no mitral valve stenosis. There is a mild amount of mitral regurgitation. Aortic Valve There is no aortic valvular vegetation. There is no aortic valve stenosis. There is no LVOT obstruction. No aortic regurgitation is present. Tricuspid Valve There is no tricuspid stenosis. There is a trace amount of tricuspid regurgitation. There is mild pulmonary hypertension by echo. RVSP is 35 mm OF hG , with RA MEAN OF 10. Pulmonic Valve There is no pulmonic valvular stenosis. There is a trace amount of pulmonic regurgitation. Great Vessels The aortic root is normal size. Effusions There is no pericardial effusion. : TRINH VARGAS > Trinh Vargas
== END ==
LOC: RAD 10:49
PROVIDERS: ATTEND Specialist
DX: I08.1 Rheumatic disorders of both mitral and tricuspid valves (principal); I27.20 Pulmonary hypertension, unspecified
CPT/HCPCS: 93306

== ENCOUNTER → 2018-01-15 | Outpatient (CLI) | payer MEDICARE, OTHER ==
[~2018-01-15] MED LIST changes: -LIDOCAINE 1%/EPINEPHRINE INJ 20 ML VIAL ONE; +REGADENOSON INJ 0.4 MG/5 ML DISP.SYRIN IV ONE
--- NOTE | 2018-01-21 23:11 | DRAGON STRESS TEST REPORT ---
Intravenous Lexiscan Cardiolite stress test using single photon emmision computerized tomography. Date of procedure: 01/15/2018. Ordering Provider: Dr. Trinh Siddiqiu. Patient's status: Out Patient. 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 Coronary risk factors: Age, and hypertension. Resting EKG: Atrial paced and ventricular capture. Stress EKG: No changes of ischemia. The patient had no chest pain or discomfort, and there were no arrhythmias seen. Reason for termination: Protocol. Conclusions: Normal EKG and hemodynamic response to IV Lexiscan. Nuclear data: At rest the patient was given 10.35 millicuries of technetium 99m sestamibi injected intravenously. As per protocol rest non gated SPECT images were obtained. Subsequently the patient was given intravenous Lexiscan at a dose of 0.4 mg in 5 mL intravenously, followed by flush with normal saline. Subsequently the stress dose of 32.0 millicuries of technetium 99m sestamibi was injected intravenously. As per protocol stress gated images were obtained. Nuclear interpretation: Review of images showed that all segments of the myocardium had normal perfusion at rest, and normal perfusion post stress with IV Lexiscan. All segments of the myocardium had normal motion, contraction, and thickening by gated study. T. I D. ratio was read as 1.25. Visually the TID ratio is normal. Computer read rest, and stress left ventricular ejection fraction were 82 %, and 70 %, respectively. Conclusion: 1. There is no scintigraphic evidence of Lexiscan induced myocardial ischemia. 2. There is no scintigraphic evidence of myocardial infarction/scar. Recommendations: Aggressive risk factor modification, and treating the underlying co- morbidities. MTDD
== END ==
LOC: RAD 06:55
PROVIDERS: ATTEND Specialist
DX: R06.2 Wheezing (principal); I10 Essential (primary) hypertension
CPT/HCPCS: 93017; 78452; A9500; J2785; Q9969

== ENCOUNTER → 2018-04-14 | Outpatient (CLI) | payer MEDICARE, OTHER ==
--- NOTE | 2018-04-14 14:09 | RADIOLOGY REPORT (SQ) ---
EXAM DESCRIPTION: U/S ABDOMEN COMPLETE W/DOPPLER COMPLETED DATE/TIME: 04/14/2018 8:33 am REASON FOR STUDY: EPIGASTRIC PAIN (R10.13) R10.13 EPIGASTRIC PAIN COMPARISON: 05/31/2017 TECHNIQUE: Dynamic and static grayscale images acquired of the abdomen and recorded on PACS. Rosao katie selected color Doppler and spectral images recorded. LIMITATIONS: None. FINDINGS: PANCREAS: No masses. The tail was not well seen. LIVER: Mildly echogenic. No masses. There is a 15 mm cyst. LIVER VASCULATURE: Normal directional flow of the main portal vein and hepatic veins. GALLBLADDER: Small gallstones. Normal wall thickness. No pericholecystic fluid. ULTRASOUND-DETECTED OREILLY'S SIGN: Negative. INTRAHEPATIC DUCTS AND COMMON DUCT: Common bile duct is borderline at 6.8 mm. INFERIOR VENA CAVA: Patent. AORTA: No aneurysm. RIGHT KIDNEY: Normal size, 8.8 cm. Normal echogenicity. Mild cortical thinning. No solid or sofy picious masses. No hydronephrosis. No calcifications. LEFT KIDNEY: Normal size, 8.6 cm. Normal echogenicity. Mild cortical thinning. No solid or susp icious masses. No hydronephrosis. No calcifications. SPLEEN: Normal size, 9.5 cm. No solid masses. PERITONEAL AND PLEURAL SPACES: No ascites or effusions. OTHER: No other significant finding. IMPRESSION: 1. Cholelithiasis with prominent common bile duct. Correlate for biliary obstruction. 2. There is some degree of fatty infiltration of the liver. 3. There are mild atrophic changes in the kidneys. TECHNICAL DOCUMENTATION: JOB ID: [id number] [employer]- All Rights Reserved Reading location - IP/workstation name: [email or web address]
== END ==
LOC: RAD 07:10
PROVIDERS: ATTEND Internal Medicine
DX: K80.20 Calculus of gallbladder without cholecystitis without obstruction (principal); R10.13 Epigastric pain
CPT/HCPCS: 76700; 93976

== ENCOUNTER → 2018-04-22 | Outpatient (CLI) | payer MEDICARE, OTHER ==
[2018-04-22 15:17] LABS: ABSOLUTE BASOPHILS # (AUTO) 0.1 10^3/uL (0.0-0.2); ABSOLUTE EOSINOPHILS # (AUTO) 0.1 10^3/uL (0.0-0.6); ABSOLUTE LYMPHOCYTES (AUTO) 1.5 10^3/uL (0.5-4.7); ABSOLUTE MONOCYTES (AUTO) 0.6 10^3/uL (0.1-1.4); ABSOLUTE NEUT (AUTO) 6.5 10^3/uL (1.7-8.2); BASOPHILS % (AUTO) 0.6 % (0-2); EOSINOPHILS % (AUTO) 1.2 % (0-6); HEMATOCRIT 39.6 % (36.0-47.0); MEAN CORPUSCULAR HEMOGLOBIN 35.6 pg (27.0-33.4); MEAN CORPUSCULAR HGB CONC 35.3 g/dL (32.0-36.0); MEAN CORPUSCULAR VOLUME 101 fl (80-97); MONOCYTES % (AUTO) 7.2 % (3-13); PLATELET COUNT 218 10^3/uL (150-450); RED BLOOD COUNT 3.93 10^6/uL (3.72-5.28); RED CELL DISTRIBUTION WIDTH 12.5 % (11.5-14.0); TOTAL CELLS COUNTED % (AUTO) 100 %; WHITE BLOOD COUNT 8.9 10^3/uL (4.0-10.5)
--- NOTE | 2018-04-22 15:38 | RADIOLOGY REPORT (SQ) ---
EXAM DESCRIPTION: CHEST PA/LATERAL COMPLETED DATE/TIME: 04/22/2018 2:35 pm REASON FOR STUDY: PULMONARY FIBROSIS,SOB,COUGH,HEMOPTYSIS COMPARISON: 06/21/2015 EXAM PARAMETERS: NUMBER OF VIEWS: two views TECHNIQUE: Digital Frontal and Lateral radiographic views of the chest acquired. RADIATION DOSE: NA LIMITATIONS: none FINDINGS: LUNGS AND PLEURA: No opacities, masses or pneumothorax. No pleural effusion. MEDIASTINUM AND HILAR STRUCTURES: No masses or contour abnormalities. HEART AND VASCULAR STRUCTURES: Heart normal size. No evidence for failure. BONES: No acute findings. HARDWARE: Pacemaker. OTHER: No other significant finding. IMPRESSION: NO SIGNIFICANT RADIOGRAPHIC FINDING IN THE CHEST. TECHNICAL DOCUMENTATION: JOB ID: [id number] [employer]- All Rights Reserved Reading location - IP/workstation name: [email or web address]
[2018-04-22 15:43] LABS: ALANINE AMINOTRANSFERASE 24 U/L (9-52); ALBUMIN 4.4 g/dL (3.5-5.0); ALKALINE PHOSPHATASE 94 U/L (38-126); ANION GAP 12 (5-19); ASPARTATE AMINO TRANSFERASE 28 U/L (14-36); BILIRUBIN,DIRECT 0.2 mg/dL (0.0-0.4); BILIRUBIN,TOTAL 0.5 mg/dL (0.2-1.3); BLOOD UREA NITROGEN 14 mg/dL (7-20); CALCIUM 9.4 mg/dL (8.4-10.2); CARBON DIOXIDE 28 mmol/L (22-30); CHLORIDE 101 mmol/L (98-107); GLUCOSE 89 mg/dL (75-110); POTASSIUM 4.3 mmol/L (3.6-5.0); SODIUM 140.6 mmol/L (137-145); TOTAL PROTEIN 6.6 g/dL (6.3-8.2)
== END ==
LOC: OD 13:47
PROVIDERS: ATTEND Specialist
DX: J84.10 Pulmonary fibrosis, unspecified (principal); R06.00 Dyspnea, unspecified; R04.2 Hemoptysis; I25.10 Atherosclerotic heart disease of native coronary artery without angina pectoris; I10 Essential (primary) hypertension; R09.89 Other specified symptoms and signs involving the circulatory and respiratory systems; I34.0 Nonrheumatic mitral (valve) insufficiency; R00.1 Bradycardia, unspecified; I36.1 Nonrheumatic tricuspid (valve) insufficiency; Z98.61 Coronary angioplasty status; Z95.0 Presence of cardiac pacemaker; Z79.899 Other long term (current) drug therapy
CPT/HCPCS: 36415; 71046; 80053; 85025

== ENCOUNTER → 2018-07-29 | Outpatient (CLI) | payer MEDICARE, OTHER ==
--- NOTE | 2018-07-29 14:48 | WOMENS IMAGING REPORT ---
EXAM DESCRIPTION: RIGHT DIAGNOSTIC MAMMO W/CAD COMPLETED DATE/TIME: 07/29/2018 11:31 am REASON FOR STUDY: C50.911 MALIGNANT NEOPLASM OF UNSPECIFIED SITE OF RIGHT FEMALE BREAST C50.911 MAL IGNANT NEOPLASM OF UNSP SITE OF RIGHT FEMALE ESTEFANY COMPARISON: 2017, 2016 TECHNIQUE: Standard craniocaudal and mediolateral oblique images of the breast recorded with digital acquisition. True lateral and magnification views right breast. LIMITATIONS: None. FINDINGS: BREAST: right MASSES: No suspicious masses. CALCIFICATIONS: No new or suspicious calcifications. ARCHITECTURAL DISTORTION: Adjacent to surgical clips 1 o'clock posterior 3rd. DEVELOPING DENSITY: None. ASYMMETRY: None noted. OTHER: No other significant findings. Read with the assistance of CAD. .[facility] - R2 Cenova Version 1.3 .[facility] - R2 Cenova Version 2.1 .[facility] - R2 Cenova Version 2.4 .[facility] - R2 Cenova Version 2.4 .[facility] - R2 [employer] Version 9.2 IMPRESSION: Postsurgical changes. BREAST DENSITY: b. There are scattered areas of fibroglandular density. BIRAD: 2 Benign findings. RECOMMENDATION: RECOMMENDED FOLLOW UP: Annual mammographic follow-up. SPECIFIC INTERVENTION/IMAGING/CONSULTATION RECOMMENDED:No additional intervention/ imaging/consultati on needed at this time. COMMUNICATION:The imaging findings were not discussed with the patient. Her referring provider has be en notified of the findings. COMMENT: The patient has been notified of the results by letter per [place] requirements. Additional no tification policies are in place for contacting patient with suspicious or incomplete findings. Quality ID #225: The [employer] recommends an annual screening mammogram for women aged 40 years or over. This facility utilizes a reminder system to ensure that all patients receive reminder letters, and/or direct phone calls for appointments. This includes reminders for routine scr eening mammograms, diagnostic mammograms, or other Breast Imaging Interventions when appropriate. Th is patient will be placed in the appropriate reminder system. The [employer] (ACR) has developed recommendations for screening MRI of the breast s in certain patient populations, to be used in conjunction with mammography. Breast MRI surveillanc e may be appropriate for women with more than 20% lifetime risk of developing breast cancer as deter mined by genetic testing, significant family history of the disease, or history of mantle radiation f or Hodgkins Disease. ACR Practice Guidelines 2008. TECHNICAL DOCUMENTATION: FINDING NUMBER: (1) ASSESSMENT: (1) JOB ID: [id number] [employer]- All Rights Reserved Reading location - IP/workstation name: [email or web address]
== END ==
LOC: WI 11:09
PROVIDERS: ATTEND Surgery
DX: C50.911 Malignant neoplasm of unspecified site of right female breast (principal)

== ENCOUNTER → 2018-09-16 | Outpatient (CLI) | payer MEDICARE, OTHER ==
--- NOTE | 2018-09-16 13:37 | WOMENS IMAGING REPORT ---
EXAM DESCRIPTION: 3D DX MAMMO BILAT; U/S BREAST UNILAT LIMITED COMPLETED DATE/TIME: 09/16/2018 11:31 am; 09/16/2018 12:27 pm REASON FOR STUDY: N64.4 MASTODYNIA; RT BREAST MASTODYNIA N64.4 N64.4 MASTODYNIA COMPARISON: 07/29/2018, 11/04/2017, and 11/01/2016. TECHNIQUE: Standard craniocaudal and mediolateral oblique views of each breast recorded using digita l acquisition and breast tomosynthesis. Additional true lateral images of the right breast acquired with tomosynthesis. LIMITATIONS: None. FINDINGS: RIGHT BREAST MASSES: No suspicious masses. CALCIFICATIONS: No new or suspicious calcifications. ARCHITECTURAL DISTORTION: Surgical changes related to previous lumpectomy. DEVELOPING DENSITY: None. ASYMMETRY: None noted. OTHER: No other significant findings. LEFT BREAST MASSES: No suspicious masses. CALCIFICATIONS: No new or suspicious calcifications. ARCHITECTURAL DISTORTION: None. DEVELOPING DENSITY: None. ASYMMETRY: None noted. OTHER: No other significant finding. Read with the assistance of CAD: .[facility] - R2 Cenova Version 1.3 .[facility] Imaging - R2 Cenova Version 2.1 .[facility] Imaging - R2 Cenova Version 2.4 .[facility] [place] - R2 Cenova Version 2.4 .[facility] - R2 Rose Grading Supervisor Version 9.2 BREAST ULTRASOUND: TECHNIQUE: Static and dynamic grayscale images acquired of the right breast in the specific areas of clinical/mammographic concern. Selected color Doppler images recorded. ELASTOGRAPHY PERFORMED: No. LIMITATIONS: None. FINDINGS: MASS: The palpable area in the axillary tail corresponds to a solid nodule measuring 4 x 12 mm. Fair ly homogeneous echogenicity and smooth margins. ELASTOGRAPHY CHARACTERISTICS: Not applicable. OTHER: No other significant finding. IMPRESSION: 1. The palpable finding in the axillary tail of the right breast is better visualized with ultrasound compared to mammography. On ultrasound there is a solid nodule which may represent a small mass or could be a lymph node with abnormal cortical thickening. Since the patient has had previous breast c ancer in the same breast, this finding should be regarded with suspicion and biopsy should be conside red. 2. Stable mammographic appearance of the left breast. No worrisome findings. BREAST DENSITY: b. There are scattered areas of fibroglandular density. BIRAD: 4 Suspicious. Biopsy should be performed in the absence of clinical contra-indication. RECOMMENDATION: RECOMMENDED FOLLOW UP: Birads 4: Biopsy should be performed in the absence of clinic al contraindication. SPECIFIC INTERVENTION/IMAGING/CONSULTATION RECOMMENDED:The suspicious finding(s) amenable to US guide d core/vacuum assisted biopsy. COMMUNICATION:The imaging findings were not discussed with the patient. Her referring provider has be en notified of the findings. COMMENT: The patient has been notified of the results by letter per SA requirements. Additional no tification policies are in place for contacting patient with suspicious or incomplete findings. Quality ID #225: The [employer] recommends an annual screening mammogram for women aged 40 years or over. This facility utilizes a reminder system to ensure that all patients receive reminder letters, and/or direct phone calls for appointments. This includes reminders for routine scr eening mammograms, diagnostic mammograms, or other Breast Imaging Interventions when appropriate. Th is patient will be placed in the appropriate reminder system. The [employer] (ACR) has developed recommendations for screening MRI of the breast s in certain patient populations, to be used in conjunction with mammography. Breast MRI surveillanc e may be appropriate for women with more than 20% lifetime risk of developing breast cancer as deter mined by genetic testing, significant family history of the disease, or history of mantle radiation f or Hodgkins Disease. ACR Practice Guidelines 2008. DBT Technology DBT is a type of tomographic mammography. With conventional mammography, overlapping breast tissue ma y make lesions difficult to detect, even with good compression. DBT uses an x-ray tube that rotates a round the breast, taking images at different angles. These images are then combined to create thin sl ices of the breast that the radiologist can view as a 3D reconstruction. The [employer] unit can perform full-field digital mammograms (2D imaging); or DBT (3D imaging); or both, in a combination mode that quickly performs both the mammogram and the tomosynthesis scan while the breast is still compressed. PQRS 6045F: Fluoroscopic imaging is not utilized for breast tomosynthesis. TECHNICAL DOCUMENTATION: FINDING NUMBER: (1) ASSESSMENT: (1) JOB ID: [id number] [employer]- All Rights Reserved Reading location - IP/workstation name: [email or web address]
--- NOTE | 2018-09-16 13:37 | WOMENS IMAGING REPORT ---
EXAM DESCRIPTION: 3D DX MAMMO BILAT; U/S BREAST UNILAT LIMITED COMPLETED DATE/TIME: 09/16/2018 11:31 am; 09/16/2018 12:27 pm REASON FOR STUDY: N64.4 MASTODYNIA; RT BREAST MASTODYNIA N64.4 N64.4 MASTODYNIA COMPARISON: 07/29/2018, 11/04/2017, and 11/01/2016. TECHNIQUE: Standard craniocaudal and mediolateral oblique views of each breast recorded using digita l acquisition and breast tomosynthesis. Additional true lateral images of the right breast acquired with tomosynthesis. LIMITATIONS: None. FINDINGS: RIGHT BREAST MASSES: No suspicious masses. CALCIFICATIONS: No new or suspicious calcifications. ARCHITECTURAL DISTORTION: Surgical changes related to previous lumpectomy. DEVELOPING DENSITY: None. ASYMMETRY: None noted. OTHER: No other significant findings. LEFT BREAST MASSES: No suspicious masses. CALCIFICATIONS: No new or suspicious calcifications. ARCHITECTURAL DISTORTION: None. DEVELOPING DENSITY: None. ASYMMETRY: None noted. OTHER: No other significant finding. Read with the assistance of CAD: .[facility] - R2 Cenova Version 1.3 .[facility] Imaging - R2 Cenova Version 2.1 .[facility] Imaging - R2 Cenova Version 2.4 .[facility] [place] - R2 Cenova Version 2.4 .[facility] - R2 Spool Cleaner Hand Version 9.2 BREAST ULTRASOUND: TECHNIQUE: Static and dynamic grayscale images acquired of the right breast in the specific areas of clinical/mammographic concern. Selected color Doppler images recorded. ELASTOGRAPHY PERFORMED: No. LIMITATIONS: None. FINDINGS: MASS: The palpable area in the axillary tail corresponds to a solid nodule measuring 4 x 12 mm. Fair ly homogeneous echogenicity and smooth margins. ELASTOGRAPHY CHARACTERISTICS: Not applicable. OTHER: No other significant finding. IMPRESSION: 1. The palpable finding in the axillary tail of the right breast is better visualized with ultrasound compared to mammography. On ultrasound there is a solid nodule which may represent a small mass or could be a lymph node with abnormal cortical thickening. Since the patient has had previous breast c ancer in the same breast, this finding should be regarded with suspicion and biopsy should be conside red. 2. Stable mammographic appearance of the left breast. No worrisome findings. BREAST DENSITY: b. There are scattered areas of fibroglandular density. BIRAD: 4 Suspicious. Biopsy should be performed in the absence of clinical contra-indication. RECOMMENDATION: RECOMMENDED FOLLOW UP: Birads 4: Biopsy should be performed in the absence of clinic al contraindication. SPECIFIC INTERVENTION/IMAGING/CONSULTATION RECOMMENDED:The suspicious finding(s) amenable to US guide d core/vacuum assisted biopsy. COMMUNICATION:The imaging findings were not discussed with the patient. Her referring provider has be en notified of the findings. COMMENT: The patient has been notified of the results by letter per SA requirements. Additional no tification policies are in place for contacting patient with suspicious or incomplete findings. Quality ID #[id number]: The [employer] recommends an annual screening mammogram for women aged 40 years or over. This facility utilizes a reminder system to ensure that all patients receive reminder letters, and/or direct phone calls for appointments. This includes reminders for routine scr eening mammograms, diagnostic mammograms, or other Breast Imaging Interventions when appropriate. Th is patient will be placed in the appropriate reminder system. The [employer] (ACR) has developed recommendations for screening MRI of the breast s in certain patient populations, to be used in conjunction with mammography. Breast MRI surveillanc e may be appropriate for women with more than 20% lifetime risk of developing breast cancer as deter mined by genetic testing, significant family history of the disease, or history of mantle radiation f or Hodgkins Disease. ACR Practice Guidelines 2008. DBT Technology DBT is a type of tomographic mammography. With conventional mammography, overlapping breast tissue ma y make lesions difficult to detect, even with good compression. DBT uses an x-ray tube that rotates a round the breast, taking images at different angles. These images are then combined to create thin sl ices of the breast that the radiologist can view as a 3D reconstruction. The [employer] unit can perform full-field digital mammograms (2D imaging); or DBT (3D imaging); or both, in a combination mode that quickly performs both the mammogram and the tomosynthesis scan while the breast is still compressed. PQRS 6045F: Fluoroscopic imaging is not utilized for breast tomosynthesis. TECHNICAL DOCUMENTATION: FINDING NUMBER: (1) ASSESSMENT: (1) JOB ID: [id number] [employer]- All Rights Reserved Reading location - IP/workstation name: [email or web address]
== END ==
LOC: WI 10:46
PROVIDERS: ATTEND Internal Medicine Medical Oncology
DX: N64.4 Mastodynia (principal)
CPT/HCPCS: 76642; 77066; G0279; 77062

== ENCOUNTER → 2019-04-14 | Outpatient (CLI) | payer MEDICARE, OTHER ==
--- NOTE | 2019-04-14 12:36 | RADIOLOGY REPORT (SQ) ---
EXAM DESCRIPTION: CHEST PA/LATERAL COMPLETED DATE/TIME: 04/14/2019 12:13 pm REASON FOR STUDY: COUGH COMPARISON: 04/22/2018 EXAM PARAMETERS: NUMBER OF VIEWS: two views TECHNIQUE: Digital Frontal and Lateral radiographic views of the chest acquired. RADIATION DOSE: NA LIMITATIONS: none FINDINGS: LUNGS AND PLEURA: Hyperexpansion of the lungs and flattening the diaphragms. No infiltrat e, effusion, or mass. MEDIASTINUM AND HILAR STRUCTURES: No masses or contour abnormalities. HEART AND VASCULAR STRUCTURES: Heart normal size. No evidence for failure. BONES: No acute findings. HARDWARE: Pacemaker. OTHER: No other significant finding. IMPRESSION: Chronic lung changes with no acute cardiopulmonary disease. TECHNICAL DOCUMENTATION: JOB ID: [id number] [employer]- All Rights Reserved Reading location - IP/workstation name: [email or web address]
--- NOTE | 2019-04-14 13:04 | RADIOLOGY REPORT (SQ) ---
EXAM DESCRIPTION: PARANASAL SINUSES COMPLETED DATE/TIME: 04/14/2019 12:13 pm REASON FOR STUDY: COUGH R05 COUGH COMPARISON: 03/07/2011 NUMBER OF VIEWS: Three views TECHNIQUE: Images of the paranasal sinuses acquired. LIMITATIONS: None. FINDINGS: ORBITS: No fracture. No foreign body. SINUSES: No mucosal thickening. No air fluid levels. FACIAL BONES: No fracture. OTHER: No other significant finding. IMPRESSION: NO FOREIGN BODY OR FRACTURE. NO PLAIN RADIOGRAPHIC EVIDENCE FOR SINUS DISEASE. TECHNICAL DOCUMENTATION: JOB ID: [id number] [employer]- All Rights Reserved Reading location - IP/workstation name: [email or web address]
== END ==
LOC: OD 11:52
PROVIDERS: ATTEND Internal Medicine
DX: R05 Cough (principal)
CPT/HCPCS: 70220; 71046